=== PATIENT | female | born 1975 | race American Indian/Alaskan Native ===

== ENCOUNTER 2019-04-03 20:31 | Emergency (ER) | payer SELFPAY ==
[2019-04-03] MEDS ORDERED: ASPIRIN PO ONE (21:45)
--- NOTE | 2019-04-03 21:48 | Event Note ---
ED Screening Note Date of service: 04/03/19 Time: 21:43 ED Screening Note: This is a 43 y.o. F. that presents to the ER with chest pain upon awaking this morning. PMH acid reflux Pain worse with movement and deep breaths. This initial assessment/diagnostic orders/clinical plan/treatment(s) is/are subject to change based on patients health status, clinical progression and re- assessment by fellow clinical providers in the ED. Further treatment and workup at subsequent clinical providers discretion. Patient/guardian urged not to elope from the ED as their condition may be serious if not clinically assessed and managed. Initial orders include: Labs, EKG, & CXR
[2019-04-03 22:43] LABS: Basophils # (Auto) 0.1 K/mm3 (0.0-0.1); Basophils % (Auto) 1.3 % (0.0-1.8); Eosinophils # (Auto) 0.2 K/mm3 (0.0-0.4); Eosinophils % (Auto) 2.4 % (0.0-4.3); Hematocrit 38.2 % (30.3-42.9); Hemoglobin 12.1 gm/dl (10.1-14.3); Lymphocytes # (Auto) 2.7 K/mm3 (1.2-5.4); Lymphocytes % (Auto) 38.5 % (13.4-35.0); Mean Corpuscular HGB Conc 32 % (30-34); Mean Corpuscular Volume 85 fl (79-97); Monocytes # (Auto) 0.6 K/mm3 (0.0-0.8); Monocytes % (Auto) 8.6 % (0.0-7.3); Platelet Count 231 K/mm3 (140-440); Red Blood Count 4.49 M/mm3 (3.65-5.03); Red Cell Distribution Width 13.7 % (13.2-15.2)
[2019-04-03 23:38] LABS: BUN/Creatinine Ratio 22; Blood Urea Nitrogen 11 mg/dL (7-17); Calcium 8.8 mg/dL (8.4-10.2); Hemolysis Index 7
[2019-04-04] MEDS ORDERED: PERCOCET 5/325 PO ONE (00:12)
[2019-04-04] MEDS ORDERED: TORADOL IM ONE (00:12)
--- NOTE | 2019-04-04 00:34 | XRay Report ---
CHEST 1 VIEW INDICATION / CLINICAL INFORMATION: Chest Pain. COMPARISON: None available. FINDINGS: SUPPORT DEVICES: None. HEART / MEDIASTINUM: No significant abnormality. LUNGS / PLEURA: No significant pulmonary or pleural abnormality.. No pneumothorax. ADDITIONAL FINDINGS: No significant additional findings. IMPRESSION: 1. No acute findings. Signer Name: Juan Mcconnell MD Signed: 04/04/2019 12:29 AM Workstation Name: [id number]
--- NOTE | 2019-04-04 01:05 | Emergency Department Report ---
ED Chest Pain HPI - General Chief Complaint: Chest Pain Stated Complaint: CHEST PAINS Time Seen by Provider: 04/03/19 21:43 Source: patient Mode of arrival: Ambulatory Limitations: No Limitations - History of Present Illness Initial Comments: 43-year-old female with no significant past medical history presents now complaining of anterior sternal chest wall pain and mid back pain since waking up this morning. Patient described as a constant pressure aching pain rated 10/10 in intensity. Pain is worse with palpation of the sternum, movement, cough, deep inspiration, and movement of her arms. Patient complains of mild shortness of breath due to pain. She denies nausea, vomiting, diaphoresis, calf tenderness, leg edema, history of PE/DVT, recent travel, smoking, or drug use. She also denies a family history of CAD. Patient states she has not had a recent infection of cough and she has not performed any heavy lifting Severity scale (0 -10): 10 - Related Data Home Medications Medication Instructions Recorded Confirmed Last Taken Cyclobenzaprine [Flexeril 10 MG 10 mg PO TID PRN 02/15/15 02/22/15 02/19/15 TAB] Etodolac 400 mg PO BID PRN 02/15/15 02/22/15 2 Weeks Ago ~02/08/15 Previous Rx's Medication Instructions Recorded Last Taken Type oxyCODONE /ACETAMINOPHEN [Percocet 1 tab PO Q6HR PRN #30 tablet 02/22/15 Unknown Rx 5/325 mg] HYDROcodone/APAP 5-325 [[place] 1 each PO Q6HR PRN #14 tablet 04/04/19 Unknown Rx 5/325] Ibuprofen [Motrin] 800 mg PO Q8HR PRN #30 tablet 04/04/19 Unknown Rx Allergies Allergy/AdvReac Type Severity Reaction Status Date / Time No Known Allergies Allergy Verified 02/22/15 07:15 Heart Score - HEART Score History: Slightly suspicious EKG: Normal Age: 45-65 Risk factors: No known risk factors Troponin: < normal limit HEART Score: 1 ED Review of Systems ROS: Stated complaint: CHEST PAINS Other details as noted in HPI Comment: All other systems reviewed and negative ED Past Medical Hx - Past Medical History Previous Medical History?: Yes Hx GERD: Yes (MILD) - Surgical History Past Surgical History?: Yes Hx Cholecystectomy: Yes (02/22/15) - Social History Smoking Status: Never Smoker Substance Use Type: None - Medications Home Medications: Home Medications Medication Instructions Recorded Confirmed Last Taken Type Cyclobenzaprine [Flexeril 10 MG 10 mg PO TID PRN 02/15/15 02/22/15 02/19/15 History TAB] Etodolac 400 mg PO BID PRN 02/15/15 02/22/15 2 Weeks Ago History ~02/08/15 oxyCODONE /ACETAMINOPHEN [Percocet 1 tab PO Q6HR PRN #30 tablet 02/22/15 Unknown Rx 5/325 mg] HYDROcodone/APAP 5-325 [[place] 1 each PO Q6HR PRN #14 tablet 04/04/19 Unknown Rx 5/325] Ibuprofen [Motrin] 800 mg PO Q8HR PRN #30 tablet 04/04/19 Unknown Rx ED Physical Exam - General Limitations: No Limitations - Other Other exam information: Gen.: No acute distress Head: Atraumatic Eyes: Normal appearance ENT: Moist mucous membranes Neck: Normal appearance, no posterior midline tenderness, no meningismus Chest: Clear to auscultation bilaterally Cardiovascular: Regular rate and rhythm. Patient has reproducible anterior wall/sternal chest wall tenderness on exam in mild posterior mid thoracic tenderness Abdomen: Normal appearance, soft, nontender, no rebound or guarding, normal bowel sounds Back: Normal appearance, nontender Extremity: Full range of motion, normal appearance, no calf tenderness or leg edema Neuro: Alert, clear speech, no focal motor or sensory deficit Psychiatric: Appropriate Skin: No rash ED Course Vital Signs 04/03/19 04/04/19 04/04/19 21:43 00:13 00:20 Temperature 98.6 F 98.2 F Pulse Rate 76 Respiratory 16 16 16 Rate Blood Pressure 139/65 Blood Pressure 140/76 [Left] O2 Sat by Pulse 100 99 Oximetry 04/04/19 00:25 Temperature Pulse Rate Respiratory 18 Rate Blood Pressure Blood Pressure [Left] O2 Sat by Pulse Oximetry SERGE score - Serge Score Age > 65: (0) No Aspirin use within the Past 7 Days: (0) No 3 or more CAD Risk Factors: (0) No 2 or more Angina events in past 24 hrs: (0) No Known CAD with more than 50% Stenosis: (0) No Elevated Cardiac Markers: (0) No ST Deviation Greater than 0.5mm: (0) No SERGE Score: 0 ED Medical Decision Making - Lab Data Result diagrams: 04/03/19 21:49 04/03/19 21:49 Lab Results 04/03/19 04/03/19 04/03/19 Range/Units 21:49 21:49 21:49 WBC 7.1 (4.5-11.0) K/mm3 RBC 4.49 (3.65-5.03) M/mm3 Hgb 12.1 (10.1-14.3) gm/dl Hct 38.2 (30.3-42.9) % MCV 85 (79-97) fl MCH 27 L (28-32) pg MCHC 32 (30-34) % RDW 13.7 (13.2-15.2) % Plt Count 231 (140-440) K/mm3 Lymph % (Auto) 38.5 H (13.4-35.0) % [place] % (Auto) 8.6 H (0.0-7.3) % Eos % (Auto) 2.4 (0.0-4.3) % Baso % (Auto) 1.3 (0.0-1.8) % Lymph # 2.7 (1.2-5.4) K/mm3 [place] # 0.6 (0.0-0.8) K/mm3 Eos # 0.2 (0.0-0.4) K/mm3 Baso # 0.1 (0.0-0.1) K/mm3 Seg Neutrophils % 49.2 (40.0-70.0) % Seg Neutrophils # 3.5 (1.8-7.7) K/mm3 Sodium 138 (137-145) mmol/L Potassium 4.0 (3.6-5.0) mmol/L Chloride 101.2 (98-107) mmol/L Carbon Dioxide 23 (22-30) mmol/L Anion Gap 18 mmol/L BUN 11 (7-17) mg/dL Creatinine 0.5 L (0.7-1.2) mg/dL Estimated GFR > 60 ml/min BUN/Creatinine Ratio 22 % Glucose 88 (65-100) mg/dL Calcium 8.8 (8.4-10.2) mg/dL Troponin T < 0.010 (0.00-0.029) ng/mL HCG, Qual Negative (Negative) - EKG Data -: EKG Interpreted by Me EKG shows normal: sinus rhythm, ST-T waves (no stemi) Rate: normal - Radiology Data Radiology results: report reviewed CHEST 1 VIEW INDICATION / CLINICAL INFORMATION: Chest Pain. COMPARISON: None available. FINDINGS: SUPPORT DEVICES: None. HEART / MEDIASTINUM: No significant abnormality. LUNGS / PLEURA: No significant pulmonary or pleural abnormality.. No pneumothorax. ADDITIONAL FINDINGS: No significant additional findings. IMPRESSION: 1. No acute findings. - Medical Decision Making Patient's reproducible chest wall pain exacerbated by any movement of the thoracic wall. Patient has a low risk for CAD given low Heart and SERGE score, normal EKG, and negative troponin with pain history all day. Chest x-ray unremarkable. Patient provided Percocet and Toradol in the ED with improvement in pain. Will be discharged on symptomatic treatment for costochondritis. Follow-up with her PMD advised - Differential Diagnosis costochondritis, NH, pneumothorax, pulmonary embolism, muscle strength Critical Care Time: No Critical care attestation.: If time is entered above; I have spent that time in minutes in the direct care of this critically ill patient, excluding procedure time. ED Disposition Clinical Impression: Costochondritis, acute Disposition: DC-01 TO HOME OR SELFCARE Is pt being admited?: No Does the pt Need Aspirin: No Condition: Stable Instructions: Costochondritis (ED) Additional Instructions: Take the medication as prescribed. Follow-up with your doctor or with the doctor/clinic provided. Return if symptoms worsen as indicated by your discharge instructions. Prescriptions: Ibuprofen [Motrin] 800 mg PO Q8HR PRN #30 tablet PRN Reason: Pain, Moderate (4-6) HYDROcodone/APAP 5-325 [[place] 5/325] 1 each PO Q6HR PRN #14 tablet PRN Reason: Pain Referrals: PRIMARY CARE, [Primary Care Provider] - 3-5 Days Time of Disposition: 01:21
[2019-04-04 01:34] VITALS: BP 120/67
== END 2019-04-04 01:36 | disposition home or self-care (01) ==
LOC: ED 20:31
DX: M94.0 Chondrocostal junction syndrome [Tietze] (principal)
CPT/HCPCS: 36415; 71045; 80048; 84484; 84703; 85025; 93005; 93010; 96372; 99284; J1885